=== PATIENT | male | born 1990 | race American Indian/Alaskan Native ===

== ENCOUNTER 2016-03-13 19:37 | Inpatient (IN) | payer BC, OTHER ==
[2016-03-13] MEDS ORDERED: MORPHINE IV ONE (23:00)
[2016-03-13] MEDS ORDERED: VANCOMYCIN/NS 1 GM/250 ML 250 ML IV ONE (23:08)
--- NOTE | 2016-03-13 23:14 | Emergency Department Report ---
Addendum entered and electronically signed by BON NOLEN NP 23:22: Original Note: - General Chief Complaint: Animal Bite Stated Complaint: SWOLLEN LEFT LEG Source: patient Mode of arrival: Ambulatory (on crutches) Limitations: No Limitations - History of Present Illness Initial Comments: Patient presents with left lower leg swelling and redness. He states on 03/07/16 he noticed a bump on his leg. He states he never saw an insect and he denies animal bite. He was in [place] at this time s/s started and he did follow-up with a physician there and states the wound was lanced and had bloody drainage but no pus or yellow drainage. He was placed on the antibiotic ampiclox TID and has been on this 5 days. He states that the leg is worsening. He admits to 10 pain. He got back from [place] last night. -: Gradual Location: other Extremity Location: Left: Lower Leg, Ankle, Foot Patient Tetanus UTD: Yes Context: other (unknown) Associated Symptoms: pain - Related Data Previous Rx's Medication Instructions Recorded Last Taken Type traMADol [Ultram] 50 mg PO Q6HR PRN #20 tablet 06/05/15 Unknown Rx Sulfamethoxazole/Trimethoprim 1 each PO BID #20 tablet 06/06/15 Unknown Rx [Bactrim DS TAB] Allergies Allergy/AdvReac Type Severity Reaction Status Date / Time shellfish derived Allergy Unknown Verified 03/13/16 20:23 ED Review of Systems ROS: Stated complaint: SWOLLEN LEFT LEG Other details as noted in HPI Constitutional: denies: chills, fever Respiratory: denies: cough, shortness of breath, wheezing Cardiovascular: denies: chest pain, palpitations Musculoskeletal: as per HPI. denies: back pain, joint swelling, arthralgia Skin: as per HPI. denies: rash, lesions Neurological: denies: headache, weakness, paresthesias ED Past Medical Hx - Past Medical History Previous Medical History?: No - Surgical History Past Surgical History?: Yes Additional Surgical History: abdominal surgery - Social History Smoking Status: Current Some Day Smoker Substance Use Type: Alcohol, Marijuana - Medications Home Medications: Home Medications Medication Instructions Recorded Confirmed Last Taken Type traMADol [Ultram] 50 mg PO Q6HR PRN #20 tablet 06/05/15 Unknown Rx Sulfamethoxazole/Trimethoprim 1 each PO BID #20 tablet 06/06/15 Unknown Rx [Bactrim DS TAB] ED Physical Exam - General Limitations: No Limitations General appearance: alert, in no apparent distress - Head Head exam: Present: atraumatic, normocephalic - Respiratory Respiratory exam: Present: normal lung sounds bilaterally. Absent: respiratory distress - Cardiovascular Cardiovascular Exam: Present: regular rate, normal rhythm. Absent: systolic murmur, diastolic murmur, rubs, gallop - GI/Abdominal GI/Abdominal exam: Present: soft, normal bowel sounds - Expanded Lower Extremity Exam Left Knee exam: Present: normal inspection, full ROM Lower Leg exam: Present: tenderness, swelling, erythema Ankle exam: Present: normal inspection, tenderness, swelling, erythema Foot/Toe exam: Present: normal inspection, swelling, erythema Neuro vascular tendon exam: Present: no vascular compromise Gait: Positive: not tested/not observed - Neurological Exam Neurological exam: Present: alert, oriented X3 - Psychiatric Psychiatric exam: Present: normal affect, normal mood - Skin Skin exam: Present: erythema (left lower leg is swollen +3 from knee to foot, there is a puncture site on lateral aspect with redness that spreads from apprx. 2 in. proximal of foot to above knee, it is warm, ttp) ED Course Vital Signs 03/13/16 03/13/16 20:21 20:24 Temperature 98.9 F 98.9 F Pulse Rate 90 90 Respiratory 20 20 Rate Blood Pressure 140/57 Blood Pressure 140/57 [Right] O2 Sat by Pulse 98 98 Oximetry ED Medical Decision Making - Medical Decision Making Patient presents with left lower leg cellulitis. CMP, CBC, Vancomycin 1G and morphine 2mg have been ordered per Dr. Turcios, hospitalist. - Differential Diagnosis cellulitis, abscess Critical Care Time: No Critical care attestation.: If time is entered above; I have spent that time in minutes in the direct care of this critically ill patient, excluding procedure time. ED Disposition Clinical Impression: Cellulitis of left leg Disposition: OP ADMITTED IP TO THIS HOSP Is pt being admited?: Yes Does the pt Need Aspirin: No Condition: Stable
--- NOTE | 2016-03-13 23:20 | History and Physical Report ---
History of Present Illness Date of examination: 03/13/16 History of present illness: 25 year old man with no medical problems comes to emergency room for evaluation of swelling of left leg. Patient was was a trip in [place] when he developed a bump on the lateral leg on March 06. The bump got bigger the next day, he developed redness, increased pain and swelling. He was started on antibiotic in [place] which she states compliant with. Complaining of dry cough Patient denies chest pain, palpitation, shortness of breath, cough, abdominal pain, hematochezia, dysuria, frequency, focal weakness, dysarthria, fever chills , polydipsia polyuria, hot or cold intolerance, easy bruisability, or rash or bleeding from mucosal membrane, rhinorrhea, epistaxis, earache, tinnitus, blurry vision, eye discharge, anxiety, depression. 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 SOCIAL HISTORY: Denies alcohol, tobacco, drugs FAMILY HISTORY: Hypertension Medications and Allergies Allergies Allergy/AdvReac Type Severity Reaction Status Date / Time shellfish derived Allergy Unknown Verified 03/13/16 20:23 Home Medications Medication Instructions Recorded Confirmed Last Taken Type traMADol [Ultram] 50 mg PO Q6HR PRN #20 tablet 06/05/15 Unknown Rx Sulfamethoxazole/Trimethoprim 1 each PO BID #20 tablet 06/06/15 Unknown Rx [Bactrim DS TAB] Active Meds: Active Medications Vancomycin HCl (Vancomycin/Ns 1 Gm/250 Ml) 250 mls @ 167 mls/hr IV ONCE ONE PRN Reason: Protocol Stop: 03/14/16 00:37 Exam - Physical Exam Narrative exam: Gen. appearance: Patient lying in bed, no apparent distress HEENT: Normocephalic, atraumatic, pupils equally round and reactive to light, extraocular movement intact, and no sclericterus,. No JVD or thyromegaly or nodule,neck supple, no carotid bruit ,mucous membranes moist, no exudate or erythema Heart: S1, S2, regular rate and rhythm Lungs: Clear to auscultation bilaterally, breathing comfortable Abdomen: Positive bowel sounds, nontender, nondistended, no organomegaly Extremity: Increased swelling of the left leg, warm to touch, tender, positive erythema, no cyanosis, clubbing Skin: No rash, nodules, warm, dry Neuro: Oriented 3, cranial nerves II-12 intact, speech is fluent, motor and sensory intact - Constitutional Vitals: Temp Pulse Resp BP Pulse Ox 98.9 F 90 20 140/57 98 03/13/16 20:24 03/13/16 20:24 03/13/16 20:24 03/13/16 20:24 03/13/16 20:24 Results - Labs CBC & Chem 7: 03/13/16 23:13 03/13/16 23:13 Assessment and Plan Acute cellulitis of the lower extremity, as outpatient treatment Cough Admits medicine Start IV vancomycin, obtain blood cultures, start IV morphine Check Doppler of the lower extremity, chest x-ray, start DVT prophylaxis cxr reviewed, nad
[2016-03-13 23:44] LABS: Basophils % (Auto) 0.3 % (0.0-1.8); Eosinophils % (Auto) 1.5 % (0.0-4.3); Hematocrit 40.1 % (35.5-45.6); Hemoglobin 13.1 gm/dl (11.8-15.2); Mean Corpuscular HGB Conc 33 % (32-34); Mean Corpuscular Hemoglobin 27 pg (28-32); Mean Corpuscular Volume 82 fl (84-94); Platelet Count 318 K/mm3 (140-440); Red Blood Count 4.89 M/mm3 (3.65-5.03); Red Cell Distribution Width 13.5 % (13.2-15.2); White Blood Count 12.6 K/mm3 (4.5-11.0)
[2016-03-13] MEDS ORDERED: MORPHINE ONE (23:59)
[2016-03-14 00:15] LABS: Alanine Aminotransferase 66 units/L (7-56); Albumin 3.5 g/dL (3.9-5); Alkaline Phosphatase 69 units/L (35-129); Anion Gap 17 mmol/L; Bilirubin,Total 0.2 mg/dL (0.1-1.2); Blood Urea Nitrogen 11 mg/dL (9-20); Calcium 8.7 mg/dL (8.4-10.2); Carbon Dioxide 29 mmol/L (22-30); Chloride 95.8 mmol/L (98-107); Glucose 106 mg/dL (75-100); Potassium 3.9 mmol/L (3.6-5.0); Sodium 138 mmol/L (137-145); Total Protein 6.9 g/dL (6.3-8.2)
[2016-03-14] MEDS ORDERED: DULCOLAX PR PRN (00:28)
[2016-03-14] MEDS ORDERED: MILK OF MAGNESIA PO PRN (00:28)
[2016-03-14] MEDS ORDERED: TYLENOL PO PRN (00:28)
[2016-03-14] MEDS ORDERED: MORPHINE IV PRN (00:28)
[2016-03-14] MEDS ORDERED: ZOFRAN IV PRN (00:28)
[2016-03-14] MEDS ORDERED: VANCOMYCIN/NS 1 GM/250 ML 250 ML IV SCH (01:00)
[2016-03-14 05:19] LABS: Basophils % (Auto) 0.2 % (0.0-1.8); Eosinophils % (Auto) 1.7 % (0.0-4.3); Hematocrit 37.4 % (35.5-45.6); Hemoglobin 12.5 gm/dl (11.8-15.2); Mean Corpuscular HGB Conc 33 % (32-34); Mean Corpuscular Hemoglobin 27 pg (28-32); Mean Corpuscular Volume 81 fl (84-94); Platelet Count 290 K/mm3 (140-440); Red Blood Count 4.61 M/mm3 (3.65-5.03); Red Cell Distribution Width 13.5 % (13.2-15.2); White Blood Count 10.8 K/mm3 (4.5-11.0)
[2016-03-14 05:36] LABS: Anion Gap 15 mmol/L; BUN/Creatinine Ratio 11.25; Blood Urea Nitrogen 9 mg/dL (9-20); Calcium 8.3 mg/dL (8.4-10.2); Carbon Dioxide 27 mmol/L (22-30); Chloride 99.7 mmol/L (98-107); Glucose 119 mg/dL (75-100); Sodium 138 mmol/L (137-145)
--- NOTE | 2016-03-14 08:08 | XRay Report ---
AP CHEST: AP view of the chest demonstrates a normal mediastinal and cardiac contour with clear lungs and normal bony and soft tissue structures. IMPRESSION: Normal AP chest.
[2016-03-14] MEDS: LOVENOX SUB-Q SCH (10:59)
[2016-03-14] MEDS ORDERED: VANCOMYCIN PHARMACY TO DOSE IV SCH (11:00)
[2016-03-14] MEDS: VANCOMYCIN/NS 1 GM/250 ML 250 ML IV SCH ×2 (11:03→21:18)
--- NOTE | 2016-03-14 11:08 | Admit Criteria Form ---
Admission Criteria Documentation: CELLULITIS Clinical Indications for Admission to Inpatient Care (Place 'X' for any and all applicable criteria): Admission is indicated for ANY ONE of the following(1)(2)(3)(4)(5): [X ]I. Limb-threatening infection [ ]II. High-risk comorbid condition as indicated by ANY ONE of the following: [ ]a) Uncontrolled diabetes (eg, HbA1c greater than 10% (0.1)) [ ]b) Cirrhosis [ ]c) Neutropenia [ ]d) Asplenia [ ]e) Immunosuppression [ ]f) Symptomatic heart failure [ ]III. Failure of outpatient therapy as indicated by ALL of the following: [ ]a) Progression or no improvement after adequate trial (minimum of 48 hours, with longer period for stable lower extremity infection) [ ]b) Adequate antibiotic regimen as indicated by use of ANY ONE of the following: [ ]i) First-generation cephalosporin (e.g., cephalexin) [ ]ii) Antistaphylococcal penicillin (e.g., dicloxacillin) [ ]iii) Penicillin-allergic patient regimen (clindamycin, extended-spectrum fluoroquinolone, or doxycycline) [ ]iv) Resistant organism (eg, methicillin-resistant Staphylococcus aureus) regimen (6) [ ]c) Outpatient intravenous therapy regimen is not appropriate due to ANY ONE of the following. (7)(8)(9)(10): [ ]i) It was tried and was not successful (eg, progression of infection). [ ]ii) It is not available or cannot be arranged in a clinically appropriate time frame (e.g., the next day). [ ]iii) Clinical presentation (eg, acuity of infection, rapidity of progression, confirmed or suspected bacteremia) is judged to require ALL of the following: [ ]1) Immediate initiation of intravenous therapy ( eg, cannot wait for next day) [ ]2) Intensity of patient monitoring and observation (eg, vital sign measurement, checks for infection progression) that cannot be provided at other than inpatient level of care [ ]IV. Mental status changes [ ]V. Bacteremia [ ]. Hemodynamic instability [ ]VII. Suspected necrotizing soft tissue infection (e.g., gas in tissue)(11)( 12) [ ]VIII. Orbital infection (13)(14) [ ]IX. Associated surgical procedure (e.g., abscess drainage, debridement) not amenable to outpatient, emergency department, or observation care [ ]X. Cutaneous gangrene [ ]XI. High fever (temperature greater than 39.5 degrees C (103.1 degrees F) (oral)) not responsive to outpatient, emergency department, or observation care therapy [ ]XIII. Inpatient admission required rather than observation care (Also use Cellulitis: Observation Care as appropriate) because of ANY ONE of the following : [ ]a) Periorbital or perineal infection that is severe or worsening [ ]b) Severe pain requiring acute inpatient management [ ]c) IV fluid to replace significant ongoing (e.g., for over 24 hours) losses (greater than 3L/m2 per day) [ ]d) Compartment syndrome monitoring (17) [ ]e) Strict or protective (eg, laminar flow) isolation [ ]f) Urgent debridement or skin grafting [ ]g) Bone or joint debridement [ ]h) Immediate inpatient surgery [ ]i) Other condition, treatment or monitoring requiring inpatient admission Extended stay beyond goal length of stay may be needed for (1)(18): [ ]a) Necrotizing soft tissue infection or fasciitis [ ]b) Gram-negative infection [ ]c) Methicillin-resistant Staphylococcal aureus (MRSA) infection [ ]d) Peripheral venous insufficiency with cellulitis [ ]e) Extensive edema [ ]f) Sepsis or continued Hemodynamic instability [ ]g) Continued high fever or mental status change [ ]h) Bacteremia [ ]i) Active serious comorbid conditions ( eg, heart failure, renal insufficiency) The original [employer] content created by [employer] has been revised. The portions of the content which have been revised are identified through the use of italic text or in bold, and [facility] has neither reviewed nor approved the modified material. All other unmodified content is copyright [employer] includes the [facility] Please see references footnoted in the original [employer] includes the [facility] edition 2016 Admission Criteria Met: Yes
--- NOTE | 2016-03-14 14:07 | Progress Note ---
Assessment and Plan Assessment and plan: Acute cellulitis of the lower extremity, failed outpatient treatment Acute bronchitis Plan: continue IV vancomycin, follow blood cultures, continue IV morphine for pain management, Doppler of the lower extremity was negative for DVT, chest x-ray normal, cont DVT prophylaxis possible discharge tomorrow History Interval history: Patient seen and examined. Medical records and medication list reviewed. No acute event overnight noted by the RN. Patient complains of left lower extremity pain with very minimal motion and swelling. Patient is tolerating diet. Discussed plan of care at bedside with patient. Hospitalist Physical - Physical exam Narrative exam: GENERAL: well-developed and well-nourished male lying on bed appeared to be in no discomfort. HEENT: Normocephalic. Atraumatic. No conjunctival congestion or icterus. Patient has moist mucous membranes. NECK: Supple. Trachea midline. CHEST/LUNGS: Clear to auscultated bilaterally, breathing nonlabored. No wheezes crackles or rhonchi. HEART/CARDIOVASCULAR: Regular in rate and rhythm. S1 and S2 positive. ABDOMEN: Abdomen is soft, nontender. Patient has normal bowel sounds. SKIN: There is no rash. Warm and dry. NEURO: No focal motor deficit. Follows command. MUSCULOSKELETAL: No joint effusion or tenderness. EXTRIMITY: Left lower extremity with extensive erythema, swelling and tenderness up to knee joint PSYCH: Cooperative. - Constitutional Vitals: Temp Pulse Resp BP Pulse Ox 98.4 F 90 12 117/66 98 03/14/16 07:10 03/14/16 07:10 03/14/16 07:10 03/14/16 07:10 03/14/16 12:04 Results - Labs CBC & Chem 7: 03/14/16 04:34 03/14/16 04:34 Labs: Laboratory Last Values WBC 10.8 K/mm3 (4.5-11.0) 03/14/16 04:34 RBC 4.61 M/mm3 (3.65-5.03) 03/14/16 04:34 Hgb 12.5 gm/dl (11.8-15.2) 03/14/16 04:34 Hct 37.4 % (35.5-45.6) 03/14/16 04:34 MCV 81 fl (84-94) L 03/14/16 04:34 MCH 27 pg (28-32) L 03/14/16 04:34 MCHC 33 % (32-34) 03/14/16 04:34 RDW 13.5 % (13.2-15.2) 03/14/16 04:34 Plt Count 290 K/mm3 (140-440) 03/14/16 04:34 Lymph % (Auto) 12.2 % (13.4-35.0) L 03/14/16 04:34 [place] % (Auto) 11.4 % (0.0-7.3) H 03/14/16 04:34 Eos % (Auto) 1.7 % (0.0-4.3) 03/14/16 04:34 Baso % (Auto) 0.2 % (0.0-1.8) 03/14/16 04:34 Lymph # 1.3 K/mm3 (1.2-5.4) 03/14/16 04:34 [place] # 1.2 K/mm3 (0.0-0.8) H 03/14/16 04:34 Eos # 0.2 K/mm3 (0.0-0.4) 03/14/16 04:34 Baso # 0.0 K/mm3 (0.0-0.1) 03/14/16 04:34 Seg Neutrophils % 74.5 % (40.0-70.0) H 03/14/16 04:34 Seg Neutrophils # 8.0 K/mm3 (1.8-7.7) H 03/14/16 04:34 Sodium 138 mmol/L (137-145) 03/14/16 04:34 Potassium 4.0 mmol/L (3.6-5.0) 03/14/16 04:34 Chloride 99.7 mmol/L (98-107) 03/14/16 04:34 Carbon Dioxide 27 mmol/L (22-30) 03/14/16 04:34 Anion Gap 15 mmol/L 03/14/16 04:34 BUN 9 mg/dL (9-20) 03/14/16 04:34 Creatinine 0.8 mg/dL (0.8-1.5) 03/14/16 04:34 Estimated GFR > 60 ml/min 03/14/16 04:34 BUN/Creatinine Ratio 11.25 % 03/14/16 04:34 Glucose 119 mg/dL (75-100) H 03/14/16 04:34 Calcium 8.3 mg/dL (8.4-10.2) L 03/14/16 04:34 Total Bilirubin 0.2 mg/dL (0.1-1.2) 03/13/16 23:13 AST 44 units/L (5-40) H 03/13/16 23:13 ALT 66 units/L (7-56) H 03/13/16 23:13 Alkaline Phosphatase 69 units/L (35-129) 03/13/16 23:13 Total Protein 6.9 g/dL (6.3-8.2) 03/13/16 23:13 Albumin 3.5 g/dL (3.9-5) L 03/13/16 23:13 Albumin/Globulin Ratio 1.0 % 03/13/16 23:13
[2016-03-15] MEDS: VANCOMYCIN/NS 1 GM/250 ML 250 ML IV SCH ×2 (04:35→13:14)
[2016-03-15] MEDS: LOVENOX SUB-Q SCH (09:26)
--- NOTE | 2016-03-15 11:58 | Discharge Summary ---
Providers - Providers Date of Admission: 03/13/16 23:16 Date of discharge: 03/15/16 Attending physician: QUENTIN ALBERTO 03/15/16 11:40 Consult to Wound/ET Nurse [CONS] Routine Reason For Exam: wound eval Primary care physician: ANDREA STONE Hospitalization Condition: Stable Hospital course: Discharge Diagnosis: Acute cellulitis of the lower extremity, failed outpatient treatment Acute bronchitis Disposition: DISCHARGED TO HOME OR SELFCARE Time spent for discharge: 32 minutes Core Measure Documentation - Palliative Care Palliative Care/ Comfort Measures: Not Applicable - Core Measures Any of the following diagnoses?: none Exam - Physical Exam Narrative exam: GENERAL: well-developed and well-nourished male lying on bed appeared to be in no discomfort. HEENT: Normocephalic. Atraumatic. No conjunctival congestion or icterus. Patient has moist mucous membranes. NECK: Supple. Trachea midline. CHEST/LUNGS: Clear to auscultated bilaterally, breathing nonlabored. No wheezes crackles or rhonchi. HEART/CARDIOVASCULAR: Regular in rate and rhythm. S1 and S2 positive. ABDOMEN: Abdomen is soft, nontender. Patient has normal bowel sounds. SKIN: There is no rash. Warm and dry. NEURO: No focal motor deficit. Follows command. MUSCULOSKELETAL: No joint effusion or tenderness. EXTRIMITY: Left lower extremity with extensive erythema, swelling and tenderness up to knee joint PSYCH: Cooperative. - Constitutional Vitals: Temp Pulse Resp BP Pulse Ox 97.7 F 83 14 122/61 99 03/15/16 07:17 03/15/16 07:17 03/15/16 07:17 03/15/16 07:17 03/15/16 07:17 Plan Activity: advance as tolerated Weight Bearing Status: Non-Weight Bearing Diet: regular Durable Medical Equipment Needed Upon Discharge: Crutches Follow up with: ANDREA STONE MD [Primary Care Provider] - 3-5 Days Prescriptions: Sulfamethoxazole/Trimethoprim [Bactrim DS TAB] 1 each PO BID #14 tablet Clindamycin [Clindamycin CAP] 600 mg PO BID #14 capsule oxyCODONE /ACETAMINOPHEN [Percocet 5/325] 1 tab PO Q6HR PRN #20 tablet PRN Reason: Pain
[2016-03-15 14:08] VITALS: BP 115/54
== END 2016-03-15 15:29 | disposition home or self-care (01) | DRG 603 ==
LOC: ED 19:37 → 3A 23:16
PROVIDERS: ADMIT Internal Medicine; ATTEND Internal Medicine
DX: L03.116 Cellulitis of left lower limb (principal); J20.9 Acute bronchitis, unspecified; F17.210 Nicotine dependence, cigarettes, uncomplicated; F12.90 Cannabis use, unspecified, uncomplicated; Z79.899 Other long term (current) drug therapy; Z90.49 Acquired absence of other specified parts of digestive tract; Z91.013 Allergy to seafood; Z98.890 Other specified postprocedural states; Z82.49 Family history of ischemic heart disease and other diseases of the circulatory system
CPT/HCPCS: 36415; 71010; 80048; 80053; 85025; 87040; 93970; 96365; 96375; 99406; J1650; J2270; J3370